=== PATIENT | female | born 1955 | race Caucasian/White ===

== ENCOUNTER → 2017-02-09 | Outpatient (CLI) | payer OTHER ==
--- NOTE | 2017-02-09 10:07 | DIAGNOSTIC IMAGING REPORT ---
DOPPLER ULTRASOUND OF THE RENAL ARTERIES CLINICAL HISTORY: Renal artery atherosclerosis. COMPARISON STUDY: No priors. TECHNIQUE: Doppler sonography of the renal arteries was performed to assess renal artery stenosis. Images are reviewed in the transverse and longitudinal planes. FINDINGS: The kidneys appear normal in size and echotexture. The right kidney measures 10.4 cm in length and the left kidney measures 10.8 cm in length. There is no hydronephrosis. On the right, intrarenal arterial resistive indices range from 0.52 to 0.66. Intrarenal arterial waveforms are normal with brisk upstrokes. The right renal arterial waveform is normal, and velocities within the right renal artery measure up to 103 cm/sec. The right renal vein is patent. On the left, intrarenal arterial resistive indices range from 0.60 to 0.64. Intrarenal arterial waveforms are normal with brisk upstrokes. The left renal arterial waveform is normal, and velocities within the left renal artery measure up to 107 cm/sec. The left renal vein is patent. The abdominal aorta is patent. Velocities within the abdominal aorta measure up to 119 cm/s. IMPRESSION: There is no sonographic evidence of renal artery stenosis. Electronically signed by: Dilan Gutierrez M.D. 02/09/2017 10:06 AM Dictated Date/Time: 02/09/2017 10:03 AM
== END | disposition home or self-care (01) ==
LOC: C.ULTR 08:55
PROVIDERS: ATTEND Internal Medicine
DX: I70.1 Atherosclerosis of renal artery (principal)

== ENCOUNTER → 2017-03-27 | Outpatient (CLI) | payer OTHER ==
--- NOTE | 2017-03-28 07:35 | MAMMOGRAPHY REPORT ---
BILATERAL DIGITAL SCREENING MAMMOGRAM TOMOSYNTHESIS WITH CAD: 03/27/2017 CLINICAL HISTORY: Routine screening. Patient has no complaints. TECHNIQUE: Breast tomosynthesis in addition to standard 2D mammography was performed. Current study was also evaluated with a Computer Aided Detection (CAD) system. COMPARISON: Comparison is made to exam dated: 12/20/2015 mammogram. BREAST COMPOSITION: There are scattered areas of fibroglandular density in both breasts. FINDINGS: There are stable asymmetries in the superior right breast on the MLO view in the medial, po sterior right breast on the CC view. Diffuse punctate microcalcifications. No suspicious mass, arch itectural distortion or cluster of microcalcifications is seen. IMPRESSION: ACR BI-RADS CATEGORY 1: NEGATIVE There is no mammographic evidence of malignancy. A 1 year screening mammogram is recommended. The pa tient will receive written notification of the results. Approximately 10% of breast cancers are not detected with mammography. A negative mammographic report should not delay biopsy if a clinically suggestive mass is present. Nidia Delgado M.D. ay/:03/28/2017 06:48:35 [place] Counselor: Nely ALVARADO(Meera)(Janette), [facility] letter sent: Normal 1/2 BI-RADS Code: ACR BI-RADS Category 1: Negative
== END | disposition home or self-care (01) ==
LOC: C.MAMM 13:18
PROVIDERS: ATTEND Internal Medicine
DX: Z12.31 Encounter for screening mammogram for malignant neoplasm of breast (principal)

== ENCOUNTER → 2017-06-15 | Outpatient (CLI) | payer OTHER ==
--- NOTE | 2017-06-15 10:24 | DIAGNOSTIC IMAGING REPORT ---
LUMBAR SPINE 5 VIEWS CLINICAL HISTORY: Left side back pain. FINDINGS: 5 views of the lumbar spine are obtained. No prior studies are available for comparison at the time of dictation. The skeletal structures are osteopenic. There is no radiographic evidence of fracture or malalignment. Vertebral body height and alignment are maintained. The transverse and spinous processes are intact. There is no evidence of spondylolysis. Mild facet arthropathy is seen in the lower lumbar region. Tiny anterior osteophytes are seen throughout. The intervertebral disc spaces are well-maintained. The visualized bony pelvis appears intact. There is a nonobstructed abdominal bowel gas pattern. Moderate constipation is observed. IMPRESSION: 1. No acute bony abnormality is seen involving the lumbosacral spine. 2. Moderate constipation. Electronically signed by: Dilan Gutierrez M.D. 06/15/2017 10:22 AM Dictated Date/Time: 06/15/2017 10:21 AM
--- NOTE | 2017-06-15 10:31 | DIAGNOSTIC IMAGING REPORT ---
THORACIC SPINE 3 VIEWS ROUTINE HISTORY: Pain. Neuropathy. M54.9 Left-sided back [id number] COMPARISON: None. FINDINGS: There is no fracture. No subluxation. Moderate degenerative disc change throughout the entire thoracic region. No evidence for compression deformity. No significant subluxation. IMPRESSION: Moderate degenerative disc change throughout the entire thoracic region. No acute process. The above report was generated using voice recognition software. It may contain grammatical, syntax or spelling errors. Electronically signed by: Freddie Zhu M.D. 06/15/2017 10:30 AM Dictated Date/Time: 06/15/2017 10:29 AM
== END | disposition home or self-care (01) ==
LOC: C.RAD1850 10:00
PROVIDERS: ATTEND Internal Medicine
DX: M54.9 Dorsalgia, unspecified (principal); K59.00 Constipation, unspecified; M51.34 Other intervertebral disc degeneration, thoracic region

== ENCOUNTER → 2017-06-29 | Outpatient (CLI) | payer OTHER ==
[2017-06-29 09:36] LABS: BASO % 0.9 %; BASO ABS # 0.03 K/uL (0-0.2); EOS % 2.4 %; EOS ABS # 0.08 K/uL (0-0.5); HEMATOCRIT 45.3 % (37-47); HEMOGLOBIN 14.6 g/dL (12.0-16.0); LYMPH % 44.9 %; LYMPH ABS # 1.51 K/uL (1.2-3.4); MEAN CELL VOLUME 98.3 fL (80-100); MEAN CORPUSCULAR HEMOGLOBIN 31.7 pg (25-34); MEAN CORPUSCULAR HGB CONC 32.2 g/dl (32-36); MEAN PLATELET VOLUME 10.8 fL (7.4-10.4); MONO % 9.8 %; MONO ABS # 0.33 K/uL (0.11-0.59); NEUT ABS # 1.41 K/uL (1.4-6.5); PLATELET COUNT 236 K/uL (130-400); RED CELL DISTRIBUTION WIDTH CV 13.4 % (11.5-14.5); RED CELL DISTRIBUTION WIDTH SD 47.9 fL (36.4-46.3); WHITE BLOOD COUNT 3.36 K/uL (4.8-10.8)
[2017-06-29 09:55] LABS: ALBUMIN 3.7 gm/dl (3.4-5.0); ALT/SGPT 28 U/L (12-78); AST/SGOT 20 U/L (15-37); BLOOD UREA NITROGEN 12 mg/dl (7-18); CALCIUM 9.1 mg/dl (8.5-10.1); CARBON DIOXIDE 29 mmol/L (21-32); CREATININE 0.76 mg/dl (0.60-1.20); GLUCOSE 84 mg/dl (70-99); POTASSIUM 3.5 mmol/L (3.5-5.1); SODIUM 138 mmol/L (136-145)
[2017-06-29 10:06] LABS: ALKALINE PHOSPHATASE 90 U/L (45-117); CHOLESTEROL 192 mg/dl (0-200); LDL CHOLESTEROL CALCULATED 99 mg/dl; TOTAL PROTEIN 7.2 gm/dl (6.4-8.2)
== END | disposition home or self-care (01) ==
LOC: C.LAB1850 07:40
PROVIDERS: ATTEND Internal Medicine
DX: Z00.00 Encounter for general adult medical examination without abnormal findings (principal); E78.5 Hyperlipidemia, unspecified; I70.1 Atherosclerosis of renal artery; R10.9 Unspecified abdominal pain

== ENCOUNTER 2020-06-23 14:12 | Observation (INO) ==
[2020-06-23] MEDS ORDERED: METOPROLOL TARTRATE 1 MG/ML VIAL IV STA ×2 (14:32→15:03)
--- NOTE | 2020-06-23 14:39 | Emergency Department Note ---
Impression & Plan Atrial flutter with rapid ventricular response, Near syncope, Palpitations, Tachycardia ED Provider Note NAME: JULIO SCHROEDER AGE: 64 SEX: F : 1955 ARRIVES VIA: Walk-In INFORMANT: [Patient] ED PROVIDER(S): [Dilan Diaz MD] CHIEF COMPLAINT: Arrhythmia HISTORY OF PRESENT ILLNESS: The patient is a 64-year-old female presents to the ER with a near syncopal event. She was at the end of her breast biopsy. She was only given local anesthetic. She began to feel faint and sweaty. No chest pain, no shortness of breath. No vomiting. She was noted to be in atrial fibrillation and was sent to the ED. The patient has not had this issue before. She states that she has had times when she felt dizzy but, she was never told that she was in A. fib. She does no t take any blood thinners. The patient was having a normal day today earlier. She went to the gym and rode an exercise bike. She has had no cough cold or congestion. Nothing new or different over the last few days. REVIEW OF SYSTEMS: See HPI for pertinent positives and negatives. A total of ten systems were reviewed and were otherwise negative. PMHx/PSHx: See Below SOCIAL HISTORY: See Below. PHYSICAL EXAM: GENERAL: Patient is in no acute distress. HEENT: No acute trauma, normocephalic atraumatic, mucous membranes moist, no nasal congestion, no scleral icterus. NECK: No stridor, no adenopathy, no meningismus, trachea is midline. LUNGS: Clear to auscultation bilaterally, no wheeze, no rhonchi, breath sounds equal. HEART: Tachycardic, irregular rhythm, no murmurs. ABDOMEN: Soft, nontender, bowel sounds positive, no hernias, no peritonitis. EXTREMITIES: No cyanosis or edema, full range of motion of all the joints without pain or difficulty, no signs for acute trauma. NEUROLOGIC: Oriented x 3, no acute motor or sensory deficits, no focal weakness. SKIN: No rash, no jaundice, no diaphoresis. DIFFERENTIAL DIAGNOSIS: Infection, dehydration, metabolic abnormality, atrial fibrillation, atrial flutter, SVT, V. tach, hypo/hyperglycemia, electrolyte disturbance, anemia, hypoxia, as well as other pathologies. EMERGENCY DEPARTMENT COURSE/PROCEDURES: ECG: Indication was near syncope. The ECG shows atrial fibrillation with a rate of 123. There is some nonspecific ST and T wave change primarily in the anterior and lateral leads. QTC is 423. There is no ST elevation, no PVCs. Continuous Cardiac Monitoring: An order was placed for continuous cardiac monitoring. The monitor shows a rate of 88 with atrial fibrillation. Critical Care Note: I have personally spent 47 minutes of critical care time in the direct management of this patient. This includes bedside care, interpretation of diagnostic studies, and testing, discussion with consultants, patient, and family members, and other required patient management activities. This 47 minutes is in excess of all separately billable procedures. MEDICAL DECISION MAKING: There is no leukocytosis or concerning anemia. There is a normal platelet count. No coagulopathy. No significant electrolyte abnormality or kidney failure. No liver enzyme elevation. The patient appeared to be in a euthyroid state. ECG shows rapid atrial fibrillation, no acute ischemia. Cardiac enzyme testing x1 is not consistent with acute cardiac injury. Chest film does not show pneumonia or CHF. Urinalysis did not show infection. Covid testing returned negative. The patient received IV saline, 500 cc. She received 15 mg of IV Lopressor in total without any significant decrease in her heart rate. She was placed on a diltiazem drip after a diltiazem bolus. This seemed to help control the heart rate into the 80s. The patient presents with rapid atrial fibrillation after her breast biopsy procedure. She has noticed palpitations over the years but has never been diagnosed with A. fib. I do think the patient requires a hospital stay. I have had a difficult time controlling her heart rate, she has remained in atrial fibrillation. I spoke to the patient at length, I talked to case management. The on-call hospitalist was consulted. Past Med/Surg History Medical History GERD (gastroesophageal reflux disease) Hyperlipidemia Surgical History History of appendectomy History of removal of ovarian cyst History of root canal procedure History of tonsillectomy and adenoidectomy Family History Mother Family history of diabetes mellitus Breast cancer Myocardial infarction Father Myocardial infarction Other No family history of adverse response to anesthesia Denies family history of Ovarian cancer Prostate cancer Colorectal cancer Social History Smoking Status: Never smoker Second Hand Exposure: No; Hx Alcohol Use: Yes Alcohol type: wine Hx Substance Use: No Preferred Language: Setswana Communication Ability: Effective Visual Impairment: No Limitations Hearing Ability: Normal 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 Beliefs That Will Affect Care: None marital status: Current Living Situation: Spouse current occupational status: employed 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 Other Information That Helps Us Care for You: No Feels Safe at Home: Yes Safety Concerns: Feels Safe At This Time Childhood Exposure to Second-Hand Smoke: No Dental Care, Regularly: Yes Physical Activity Frequency: 5-6 Times per Week Seatbelt Use: always Sunscreen Use: Yes Assistive Devices: Glasses Allergies Allergies Allergy/AdvReac Type Severity Reaction Status Date / Time No Known Allergies Allergy Verified 06/23/20 16:03 Home Meds Previous Rx's Medication Instructions Recorded pravastatin 80 mg tablet 80 mg PO HS #90 tab 06/12/19 omeprazole 20 mg tablet,delayed 20 mg PO BID #180 tab 10/30/19 release Results & Data (ED) Vital Signs Vital Signs - 24 hr 06/23/20 14:16 06/23/20 14:39 06/23/20 14:40 Temperature 36.9 C Temperature Source Temporal Artery Scan Pulse Rate 134 H 115 H 128 H Pulse Rate from SpO2 Sensor Respiratory Rate 16 16 17 Respiratory Effort / Characteristics Non-Labored Spontaneous Respiratory Depth Normal Respiratory Pattern Regular Blood Pressure 137/78 Blood Pressure Mean 97 Blood Pressure Position Sitting Pulse Oximetry 96 Oxygen Delivery Method Room Air Sepsis Recent Fever Within 48 Hours No Sepsis New/Unexplained Change in Mental Status N/A Sepsis Action Taken by Nursing No Action Required 06/23/20 14:45 06/23/20 14:50 06/23/20 14:51 Temperature Temperature Source Pulse Rate 126 H 116 H 119 H Pulse Rate from SpO2 Sensor 118 H 108 H 119 H Respiratory Rate 20 20 18 Respiratory Effort / Characteristics Respiratory Depth Respiratory Pattern Blood Pressure 152/93 H Blood Pressure Mean 112 Blood Pressure Position Pulse Oximetry 98 97 96 Oxygen Delivery Method Sepsis Recent Fever Within 48 Hours Sepsis New/Unexplained Change in Mental Status Sepsis Action Taken by Nursing 06/23/20 14:55 06/23/20 14:56 06/23/20 15:00 Temperature Temperature Source Pulse Rate 116 H 110 H 117 H Pulse Rate from SpO2 Sensor 123 H 113 H Respiratory Rate 19 14 14 Respiratory Effort / Characteristics Respiratory Depth Respiratory Pattern Blood Pressure 134/90 128/99 Blood Pressure Mean 104 108 Blood Pressure Position Pulse Oximetry 97 Oxygen Delivery Method Sepsis Recent Fever Within 48 Hours Sepsis New/Unexplained Change in Mental Status Sepsis Action Taken by Nursing 06/23/20 15:01 06/23/20 15:05 06/23/20 15:06 Temperature Temperature Source Pulse Rate 122 H 105 H 108 H Pulse Rate from SpO2 Sensor 113 H 121 H 107 H Respiratory Rate 21 15 14 Respiratory Effort / Characteristics Respiratory Depth Respiratory Pattern Blood Pressure 139/111 H Blood Pressure Mean 120 Blood Pressure Position Pulse Oximetry 95 95 Oxygen Delivery Method Sepsis Recent Fever Within 48 Hours Sepsis New/Unexplained Change in Mental Status Sepsis Action Taken by Nursing 06/23/20 15:10 06/23/20 15:11 06/23/20 15:15 Temperature Temperature Source Pulse Rate 106 H 107 H 108 H Pulse Rate from SpO2 Sensor 101 H 91 H 101 H Respiratory Rate 16 16 15 Respiratory Effort / Characteristics Respiratory Depth Respiratory Pattern Blood Pressure 135/88 137/94 Blood Pressure Mean 103 108 Blood Pressure Position Pulse Oximetry 95 96 Oxygen Delivery Method Sepsis Recent Fever Within 48 Hours Sepsis New/Unexplained Change in Mental Status Sepsis Action Taken by Nursing 06/23/20 15:16 06/23/20 15:20 06/23/20 15:25 Temperature Temperature Source Pulse Rate 106 H 105 H 106 H Pulse Rate from SpO2 Sensor 121 H 81 101 H Respiratory Rate 15 16 15 Respiratory Effort / Characteristics Respiratory Depth Respiratory Pattern Blood Pressure 128/95 Blood Pressure Mean 106 Blood Pressure Position Pulse Oximetry 94 94 Oxygen Delivery Method Sepsis Recent Fever Within 48 Hours Sepsis New/Unexplained Change in Mental Status Sepsis Action Taken by Nursing 06/23/20 15:30 06/23/20 15:35 06/23/20 15:40 Temperature Temperature Source Pulse Rate 116 H 106 H 117 H Pulse Rate from SpO2 Sensor 113 H 99 H 92 H Respiratory Rate 15 16 15 Respiratory Effort / Characteristics Respiratory Depth Respiratory Pattern Blood Pressure 123/91 114/95 133/108 H Blood Pressure Mean 101 101 116 Blood Pressure Position Pulse Oximetry 96 96 95 Oxygen Delivery Method Sepsis Recent Fever Within 48 Hours Sepsis New/Unexplained Change in Mental Status Sepsis Action Taken by Nursing 06/23/20 15:45 06/23/20 15:51 06/23/20 15:55 Temperature Temperature Source Pulse Rate 120 H 117 H 105 H Pulse Rate from SpO2 Sensor 107 H 99 H 99 H Respiratory Rate 22 16 18 Respiratory Effort / Characteristics Respiratory Depth Respiratory Pattern Blood Pressure 101/75 104/83 124/89 Blood Pressure Mean 83 90 100 Blood Pressure Position Pulse Oximetry 96 95 96 Oxygen Delivery Method Sepsis Recent Fever Within 48 Hours Sepsis New/Unexplained Change in Mental Status Sepsis Action Taken by Nursing 06/23/20 16:07 06/23/20 16:10 06/23/20 16:13 Temperature Temperature Source Pulse Rate 97 H 120 H Pulse Rate from SpO2 Sensor 100 H 114 H Respiratory Rate 18 21 Respiratory Effort / Characteristics Respiratory Depth Respiratory Pattern Blood Pressure 119/86 132/96 Blood Pressure Mean 97 108 Blood Pressure Position Pulse Oximetry 95 97 Oxygen Delivery Method Room Air Sepsis Recent Fever Within 48 Hours Sepsis New/Unexplained Change in Mental Status Sepsis Action Taken by Nursing 06/23/20 16:15 06/23/20 16:16 06/23/20 16:20 Temperature Temperature Source Pulse Rate 95 H 96 H 93 H Pulse Rate from SpO2 Sensor 95 H 85 95 H Respiratory Rate 17 22 23 Respiratory Effort / Characteristics Respiratory Depth Respiratory Pattern Blood Pressure 117/70 123/84 Blood Pressure Mean 85 97 Blood Pressure Position Pulse Oximetry 93 94 90 Oxygen Delivery Method Sepsis Recent Fever Within 48 Hours Sepsis New/Unexplained Change in Mental Status Sepsis Action Taken by Nursing 06/23/20 16:21 06/23/20 16:25 06/23/20 16:26 Temperature Temperature Source Pulse Rate 83 101 H 93 H Pulse Rate from SpO2 Sensor 83 98 H 86 Respiratory Rate 20 16 21 Respiratory Effort / Characteristics Respiratory Depth Respiratory Pattern Blood Pressure 130/76 Blood Pressure Mean 94 Blood Pressure Position Pulse Oximetry 96 95 95 Oxygen Delivery Method Sepsis Recent Fever Within 48 Hours Sepsis New/Unexplained Change in Mental Status Sepsis Action Taken by Nursing 06/23/20 16:30 06/23/20 16:31 06/23/20 16:35 Temperature Temperature Source Pulse Rate 106 H 83 88 Pulse Rate from SpO2 Sensor 95 H 86 99 H Respiratory Rate 16 15 18 Respiratory Effort / Characteristics Respiratory Depth Respiratory Pattern Blood Pressure 120/87 121/81 Blood Pressure Mean 98 94 Blood Pressure Position Pulse Oximetry 96 97 96 Oxygen Delivery Method Sepsis Recent Fever Within 48 Hours Sepsis New/Unexplained Change in Mental Status Sepsis Action Taken by Nursing 06/23/20 16:36 06/23/20 16:40 06/23/20 16:41 Temperature Temperature Source Pulse Rate 88 99 H 90 Pulse Rate from SpO2 Sensor 90 93 H 83 Respiratory Rate 16 16 14 Respiratory Effort / Characteristics Respiratory Depth Respiratory Pattern Blood Pressure 125/66 Blood Pressure Mean 85 Blood Pressure Position Pulse Oximetry 95 96 95 Oxygen Delivery Method Sepsis Recent Fever Within 48 Hours Sepsis New/Unexplained Change in Mental Status Sepsis Action Taken by Nursing 06/23/20 16:45 06/23/20 16:46 06/23/20 16:50 Temperature Temperature Source Pulse Rate 93 H 89 92 H Pulse Rate from SpO2 Sensor 78 92 H 99 H Respiratory Rate 14 14 17 Respiratory Effort / Characteristics Respiratory Depth Respiratory Pattern Blood Pressure 128/76 Blood Pressure Mean 93 Blood Pressure Position Pulse Oximetry 93 97 94 Oxygen Delivery Method Sepsis Recent Fever Within 48 Hours Sepsis New/Unexplained Change in Mental Status Sepsis Action Taken by Nursing 06/23/20 16:51 06/23/20 16:55 06/23/20 16:56 Temperature Temperature Source Pulse Rate 93 H 95 H 91 H Pulse Rate from SpO2 Sensor 86 97 H 87 Respiratory Rate 18 16 17 Respiratory Effort / Characteristics Respiratory Depth Respiratory Pattern Blood Pressure 121/100 129/88 Blood Pressure Mean 107 101 Blood Pressure Position Pulse Oximetry 94 95 95 Oxygen Delivery Method Sepsis Recent Fever Within 48 Hours Sepsis New/Unexplained Change in Mental Status Sepsis Action Taken by Nursing 06/23/20 17:00 06/23/20 17:01 06/23/20 17:05 Temperature Temperature Source Pulse Rate 99 H 94 H 91 H Pulse Rate from SpO2 Sensor 93 H 90 84 Respiratory Rate 19 16 18 Respiratory Effort / Characteristics Respiratory Depth Respiratory Pattern Blood Pressure 114/86 128/85 Blood Pressure Mean 95 99 Blood Pressure Position Pulse Oximetry 97 96 95 Oxygen Delivery Method Sepsis Recent Fever Within 48 Hours Sepsis New/Unexplained Change in Mental Status Sepsis Action Taken by Nursing 06/23/20 17:06 06/23/20 17:10 06/23/20 17:11 Temperature Temperature Source Pulse Rate 87 93 H 104 H Pulse Rate from SpO2 Sensor 87 85 96 H Respiratory Rate 19 16 20 Respiratory Effort / Characteristics Respiratory Depth Respiratory Pattern Blood Pressure 105/84 Blood Pressure Mean 91 Blood Pressure Position Pulse Oximetry 95 96 96 Oxygen Delivery Method Sepsis Recent Fever Within 48 Hours Sepsis New/Unexplained Change in Mental Status Sepsis Action Taken by Nursing 06/23/20 17:15 06/23/20 17:20 06/23/20 17:25 Temperature Temperature Source Pulse Rate 109 H 105 H 100 H Pulse Rate from SpO2 Sensor 112 H 102 H 102 H Respiratory Rate 21 17 12 Respiratory Effort / Characteristics Respiratory Depth Respiratory Pattern Blood Pressure 105/81 129/81 127/78 Blood Pressure Mean 89 97 94 Blood Pressure Position Pulse Oximetry 93 97 96 Oxygen Delivery Method Sepsis Recent Fever Within 48 Hours Sepsis New/Unexplained Change in Mental Status Sepsis Action Taken by Nursing 06/23/20 17:26 06/23/20 17:30 06/23/20 17:31 Temperature Temperature Source Pulse Rate 103 H 100 H 99 H Pulse Rate from SpO2 Sensor 97 H 109 H 90 Respiratory Rate 20 15 19 Respiratory Effort / Characteristics Respiratory Depth Respiratory Pattern Blood Pressure 129/99 Blood Pressure Mean 109 Blood Pressure Position Pulse Oximetry 94 94 96 Oxygen Delivery Method Sepsis Recent Fever Within 48 Hours Sepsis New/Unexplained Change in Mental Status Sepsis Action Taken by Nursing 06/23/20 17:35 06/23/20 17:36 06/23/20 17:40 Temperature Temperature Source Pulse Rate 108 H 96 H 107 H Pulse Rate from SpO2 Sensor 105 H 94 H 97 H Respiratory Rate 21 23 20 Respiratory Effort / Characteristics Respiratory Depth Respiratory Pattern Blood Pressure 129/91 132/94 Blood Pressure Mean 103 106 Blood Pressure Position Pulse Oximetry 95 96 97 Oxygen Delivery Method Sepsis Recent Fever Within 48 Hours Sepsis New/Unexplained Change in Mental Status Sepsis Action Taken by Nursing 06/23/20 17:41 06/23/20 17:45 06/23/20 17:46 Temperature Temperature Source Pulse Rate 108 H 94 H 94 H Pulse Rate from SpO2 Sensor 95 H 101 H 85 Respiratory Rate 20 22 21 Respiratory Effort / Characteristics Respiratory Depth Respiratory Pattern Blood Pressure 131/82 Blood Pressure Mean 98 Blood Pressure Position Pulse Oximetry 95 97 93 Oxygen Delivery Method Sepsis Recent Fever Within 48 Hours Sepsis New/Unexplained Change in Mental Status Sepsis Action Taken by Nursing 06/23/20 17:50 06/23/20 17:51 Temperature Temperature Source Pulse Rate 90 80 Pulse Rate from SpO2 Sensor 91 H 82 Respiratory Rate 15 20 Respiratory Effort / Characteristics Respiratory Depth Respiratory Pattern Blood Pressure 131/87 Blood Pressure Mean 101 Blood Pressure Position Pulse Oximetry 97 91 Oxygen Delivery Method Sepsis Recent Fever Within 48 Hours Sepsis New/Unexplained Change in Mental Status Sepsis Action Taken by Group Home Medications Current Medication List: was personally reviewed by me Laboratory Data Attestation: I reviewed the patient's lab results. Result diagrams: 06/23/20 14:45 06/23/20 16:03 Lab Results 06/23/20 06/23/20 06/23/20 Range/Units 14:45 14:45 14:45 WBC 6.08 (4.8-10.8) K/uL RBC 4.49 (4.2-5.4) M/uL Hgb 14.6 (12.0-16.0) g/dL Hct 43.8 (37-47) % MCV 97.6 (80-100) fL MCH 32.5 (25-34) pg MCHC 33.3 (32-36) g/dL RDW Std Deviation 48.7 H (36.4-46.3) fL RDW Coeff of Helen 13.7 (11.5-14.5) % Plt Count 227 (130-400) K/uL MPV 10.6 H (7.4-10.4) fL Immature Gran % (Auto) 0.2 % Neut % (Auto) 68.8 % Lymph % (Auto) 23.7 % Murray % (Auto) 6.6 % Eos % (Auto) 0.5 % Baso % (Auto) 0.2 % Neut # (Auto) 4.19 (1.4-6.5) K/uL Lymph # (Auto) 1.44 (1.2-3.4) K/uL Murray # (Auto) 0.40 (0.11-0.59) K/uL Eos # (Auto) 0.03 (0-0.5) K/uL Baso # (Auto) 0.01 (0-0.2) K/uL Immature Gran # (Auto) 0.01 (0.00-0.02) K/uL PT Cancelled INR Cancelled APTT Cancelled PTT Ratio Cancelled Sodium 137 (136-145) mmol/L Potassium (3.5-5.1) mmol/L Chloride 105 (98-107) mmol/L Carbon Dioxide 25 (21-32) mmol/L Anion Gap 7.0 (3-11) BUN 13 (7-18) mg/dl Creatinine 1.00 (0.6-1.2) mg/dl Est Cr Clr Drug Dosing 57.8 ml/min Est GFR ( Amer) 69.0 Est GFR (Non-Af Amer) 59.5 BUN/Creatinine Ratio 13.2 (10-20) Glucose 119 H (70-99) mg/dl Calcium 9.8 (8.5-10.1) mg/dl Magnesium (1.8-2.4) mg/dl Total Bilirubin 0.3 (0.2-1) mg/dl AST (15-37) U/L ALT 28 (12-78) U/L Alkaline Phosphatase 101 (45-117) U/L Troponin I < 0.015 (0-0.045) ng/ml Total Protein 7.7 (6.4-8.2) gm/dl Albumin 4.1 (3.4-5.0) gm/dl Globulin 3.6 (2.5-4.0) gm/dl Albumin/Globulin Ratio 1.1 (0.9-2) TSH 3.410 (0.300-4.500) uIu/ml Urine Color Urine Appearance (Clear) Urine pH (4.5-7.5) Ur Specific [place] (1.000-1.030) Urine Protein (Negative) Urine Glucose (UA) (Negative) Urine Ketones (Negative) Urine Blood (Negative) Urine Nitrite (Negative) Urine Bilirubin (Negative) Urine Urobilinogen (Negative) Ur Leukocyte Esterase (Negative) Urine WBC (Auto) (0-5) /hpf Urine RBC (Auto) (0-4) /hpf U Hyaline Cast (Auto) (0-5) /lpf U Epithel Cells (Auto) (0-5) /lpf Urine Bacteria (Auto) (Negative) COVID-19 Eval Order SARS-CoV-2, RNA, NAAT (NEGATIVE) 06/23/20 06/23/20 06/23/20 Range/Units 16:03 16:03 16:10 WBC (4.8-10.8) K/uL RBC (4.2-5.4) M/uL Hgb (12.0-16.0) g/dL Hct (37-47) % MCV (80-100) fL MCH (25-34) pg MCHC (32-36) g/dL RDW Std Deviation (36.4-46.3) fL RDW Coeff of Helen (11.5-14.5) % Plt Count (130-400) K/uL MPV (7.4-10.4) fL Immature Gran % (Auto) % Neut % (Auto) % Lymph % (Auto) % Murray % (Auto) % Eos % (Auto) % Baso % (Auto) % Neut # (Auto) (1.4-6.5) K/uL Lymph # (Auto) (1.2-3.4) K/uL Murray # (Auto) (0.11-0.59) K/uL Eos # (Auto) (0-0.5) K/uL Baso # (Auto) (0-0.2) K/uL Immature Gran # (Auto) (0.00-0.02) K/uL PT 9.8 INR 1.0 APTT 20.7 L PTT Ratio 0.8 Sodium (136-145) mmol/L Potassium 3.5 (3.5-5.1) mmol/L Chloride (98-107) mmol/L Carbon Dioxide (21-32) mmol/L Anion Gap (3-11) BUN (7-18) mg/dl Creatinine (0.6-1.2) mg/dl Est Cr Clr Drug Dosing ml/min Est GFR ( Amer) Est GFR (Non-Af Amer) BUN/Creatinine Ratio (10-20) Glucose (70-99) mg/dl Calcium (8.5-10.1) mg/dl Magnesium 2.4 (1.8-2.4) mg/dl Total Bilirubin (0.2-1) mg/dl AST 18 (15-37) U/L ALT (12-78) U/L Alkaline Phosphatase (45-117) U/L Troponin I (0-0.045) ng/ml Total Protein (6.4-8.2) gm/dl Albumin (3.4-5.0) gm/dl Globulin (2.5-4.0) gm/dl Albumin/Globulin Ratio (0.9-2) TSH (0.300-4.500) uIu/ml Urine Color Yellow Urine Appearance Cloudy A (Clear) Urine pH 8.0 H (4.5-7.5) Ur Specific [place] 1.007 (1.000-1.030) Urine Protein Negative (Negative) Urine Glucose (UA) Negative (Negative) Urine Ketones Negative (Negative) Urine Blood Negative (Negative) Urine Nitrite Negative (Negative) Urine Bilirubin Negative (Negative) Urine Urobilinogen Negative (Negative) Ur Leukocyte Esterase Negative (Negative) Urine WBC (Auto) 1-5 (0-5) /hpf Urine RBC (Auto) 0-4 (0-4) /hpf U Hyaline Cast (Auto) 0 (0-5) /lpf U Epithel Cells (Auto) 0-5 (0-5) /lpf Urine Bacteria (Auto) Negative (Negative) COVID-19 Eval Order SARS-CoV-2, RNA, NAAT (NEGATIVE) 06/23/20 06/23/20 Range/Units 16:49 16:49 WBC (4.8-10.8) K/uL RBC (4.2-5.4) M/uL Hgb (12.0-16.0) g/dL Hct (37-47) % MCV (80-100) fL MCH (25-34) pg MCHC (32-36) g/dL RDW Std Deviation (36.4-46.3) fL RDW Coeff of Helen (11.5-14.5) % Plt Count (130-400) K/uL MPV (7.4-10.4) fL Immature Gran % (Auto) % Neut % (Auto) % Lymph % (Auto) % Murray % (Auto) % Eos % (Auto) % Baso % (Auto) % Neut # (Auto) (1.4-6.5) K/uL Lymph # (Auto) (1.2-3.4) K/uL Murray # (Auto) (0.11-0.59) K/uL Eos # (Auto) (0-0.5) K/uL Baso # (Auto) (0-0.2) K/uL Immature Gran # (Auto) (0.00-0.02) K/uL PT INR APTT PTT Ratio Sodium (136-145) mmol/L Potassium (3.5-5.1) mmol/L Chloride (98-107) mmol/L Carbon Dioxide (21-32) mmol/L Anion Gap (3-11) BUN (7-18) mg/dl Creatinine (0.6-1.2) mg/dl Est Cr Clr Drug Dosing ml/min Est GFR ( Amer) Est GFR (Non-Af Amer) BUN/Creatinine Ratio (10-20) Glucose (70-99) mg/dl Calcium (8.5-10.1) mg/dl Magnesium (1.8-2.4) mg/dl Total Bilirubin (0.2-1) mg/dl AST (15-37) U/L ALT (12-78) U/L Alkaline Phosphatase (45-117) U/L Troponin I (0-0.045) ng/ml Total Protein (6.4-8.2) gm/dl Albumin (3.4-5.0) gm/dl Globulin (2.5-4.0) gm/dl Albumin/Globulin Ratio (0.9-2) TSH (0.300-4.500) uIu/ml Urine Color Urine Appearance (Clear) Urine pH (4.5-7.5) Ur Specific [place] (1.000-1.030) Urine Protein (Negative) Urine Glucose (UA) (Negative) Urine Ketones (Negative) Urine Blood (Negative) Urine Nitrite (Negative) Urine Bilirubin (Negative) Urine Urobilinogen (Negative) Ur Leukocyte Esterase (Negative) Urine WBC (Auto) (0-5) /hpf Urine RBC (Auto) (0-4) /hpf U Hyaline Cast (Auto) (0-5) /lpf U Epithel Cells (Auto) (0-5) /lpf Urine Bacteria (Auto) (Negative) COVID-19 Eval Order Covid19 [facility] SARS-CoV-2, RNA, NAAT NEGATIVE (NEGATIVE) Administered Medications Diltiazem HCl 125 mg/ Dextrose 125 mls @ 0 mls/hr IV .Q0M [facility]; Protocol Stop: 07/23/20 15:29 Last Titration: 06/23/20 19:07 Dose: 0 mg/hr, 0 mls/hr Documented by: [id number] Cosigned by: [id number] Titration: 06/23/20 18:52 Dose: 5 mg/hr, 5 mls/hr Documented by: [id number] Cosigned by: [id number] Titration: 06/23/20 17:03 Dose: 10 mg/hr, 10 mls/hr Documented by: [id number] Cosigned by: [id number] Admin: 06/23/20 16:07 Dose: 5 mg/hr, 5 mls/hr Documented by: [id number] Cosigned by: [id number] Discontinued Medications Diltiazem HCl (Diltiazem Hcl 5 Mg/Ml 5 Ml Vial) 5 mg IV NOW STA Stop: 06/23/20 15:31 Last Admin: 06/23/20 16:06 Dose: 5 mg Documented by: [id number] Cosigned by: [id number] Sodium Chloride (Nss) 500 mls @ 999 mls/hr IV .Q31M [facility] Stop: 06/23/20 15:15 Last Infusion: 06/23/20 15:21 Dose: 0 mls/hr Documented by: [id number] Admin: 06/23/20 14:45 Dose: 999 mls/hr Documented by: [id number] Metoprolol Tartrate (Metoprolol Tartrate 1 Mg/Ml Vial) 5 mg IV NOW STA Stop: 06/23/20 14:33 Last Admin: 06/23/20 14:45 Dose: 5 mg Documented by: [id number] Metoprolol Tartrate (Metoprolol Tartrate 1 Mg/Ml Vial) 10 mg IV NOW STA Stop: 06/23/20 15:04 Last Admin: 06/23/20 15:05 Dose: 10 mg Documented by: [id number] Miscellaneous (Stat Iv Infusion Titration Per Protocol) 1 ea N/A NOW STA Stop: 06/23/20 15:31 Last Admin: 06/23/20 16:28 Dose: 1 ea Documented by: [id number] Imaging Data Radiologist's Impression: XR chest 1V portable CLINICAL HISTORY: Weakness. COMPARISON STUDY: No previous studies for comparison. FINDINGS: Lung volumes are normal. Minimal opacity along left heart border is no jorge. There is no pneumothorax or pleural effusion. Cardiac size is normal. Mediastinal contours are normal. There is no evidence for pulmonary edema. IMPRESSION: 1. No acute cardiopulmonary findings. 2. Minimal opacity along the left heart border which favors atelectasis or epicardial fat pad. Discharge Plan Visit Data Chief Complaint: Arrhythmia/Palpitations Stated Complaint: POST PROCEDURE - AFIB SENT BY ED Provider: Dilan Diaz Discharge Problem: Atrial flutter with rapid ventricular response, Near syncope, Palpitations, Tachycardia Patient Disposition: Admitted As Inpatient Condition: Fair Discharge Instructions Interventions: ED Discharge Assessment Last Done: 06/23/20 19:28
[2020-06-23] MEDS ORDERED: SODIUM CHLORIDE 0.9% 500 ML IV SCH (14:45)
[2020-06-23 15:07] LABS: Basophils # (auto) 0.01 K/uL (0-0.2); Basophils % (auto) 0.2 %; Eosinophils # (auto) 0.03 K/uL (0-0.5); Eosinophils % (auto) 0.5 %; Hematocrit (blood only) 43.8 % (37-47); Hemoglobin 14.6 g/dL (12.0-16.0); Immature Granulocytes # (auto) 0.01 K/uL (0.00-0.02); Immature Granulocytes % (auto) 0.2 %; Lymphocytes # (auto) 1.44 K/uL (1.2-3.4); Lymphocytes % (auto) 23.7 %; Mean Corpuscular Hemoglobin 32.5 pg (25-34); Mean Corpuscular Hgb Conc 33.3 g/dL (32-36); Mean Corpuscular Volume 97.6 fL (80-100); Mean Platelet Volume 10.6 fL (7.4-10.4); Monocytes % (auto) 6.6 %; Neutrophils # (auto) 4.19 K/uL (1.4-6.5); Neutrophils % (auto) 68.8 %; Platelet Count 227 K/uL (130-400); RDW Coefficient of Variation 13.7 % (11.5-14.5); RDW Standard Deviation 48.7 fL (36.4-46.3); Red Blood Count 4.49 M/uL (4.2-5.4); White Blood Count 6.08 K/uL (4.8-10.8)
--- NOTE | 2020-06-23 15:08 | XRay Report ---
XR chest 1V portable CLINICAL HISTORY: Weakness. COMPARISON STUDY: No previous studies for comparison. FINDINGS: Lung volumes are normal. Minimal opacity along left heart border is noted. There is no pneu mothorax or pleural effusion. Cardiac size is normal. Mediastinal contours are normal. There is no ev idence for pulmonary edema. IMPRESSION: 1. No acute cardiopulmonary findings. 2. Minimal opacity along the left heart border which favors atelectasis or epicardial fat pad. ACT 112: Negative or not required by law. Electronically signed by: Hector Proctor M.D. 06/23/2020 3:07 PM
[2020-06-23] MEDS ORDERED: dilTIAZem HCL 125 MG in DEXTROSE 5% 100 ML IV SCH (15:30)
[2020-06-23] MEDS ORDERED: STAT IV Infusion **Titration per Protocol STA (15:30)
[2020-06-23] MEDS ORDERED: dilTIAZem HCl 5 MG/ML 5 ML VIAL IV STA (15:30)
--- NOTE | 2020-06-23 15:36 | Electrocardiogram Report ---
Test Reason : Blood Pressure : / mmHG Vent. Rate : 123 BPM Atrial Rate : 113 BPM P-R Int : 000 ms QRS Dur : 088 ms QT Int : 296 ms P-R-T Axes : 000 057 012 degrees QTc Int : 423 ms Atrial fibrillation with rapid ventricular response Nonspecific ST and T wave abnormality Abnormal ECG No previous ECGs available Confirmed by hTomas Uribe ([id number]) on 06/23/2020 3:36:18 PM Referred By: Confirmed By:Thomas Uribe
[2020-06-23 15:45] LABS: Alanine Aminotransferase 28 U/L (12-78); Albumin Globulin Ratio 1.1 (0.9-2); Albumin Level 4.1 gm/dl (3.4-5.0); Alkaline Phosphatase 101 U/L (45-117); BUN Creatinine Ratio 13.2 (10-20); Bilirubin,Total 0.3 mg/dl (0.2-1); Blood Urea Nitrogen 13 mg/dl (7-18); Calcium 9.8 mg/dl (8.5-10.1); Carbon Dioxide 25 mmol/L (21-32); Chloride 105 mmol/L (98-107); Creatinine Clr Calc Pharmacy 57.8 ml/min; Est GFR (Non-African American) 59.5; Globulin 3.6 gm/dl (2.5-4.0); Glucose 119 mg/dl (70-99); Sodium 137 mmol/L (136-145); Total Protein 7.7 gm/dl (6.4-8.2); Troponin I < 0.015 ng/ml (0-0.045)
[2020-06-23 16:27] LABS: Appearance Urine Cloudy (Clear); Bacteria Urine Automated Negative (Negative); Bilirubin Urine Negative (Negative); Blood Urine Negative (Negative); Cast Urine Automated 0 /lpf (0-5); Color Urine Yellow; Epithelial Cell Urine Auto 0-5 /lpf (0-5); Glucose Urine UA Negative (Negative); Ketones Urine Negative (Negative); Leukocyte Esterase Urine Negative (Negative); Nitrite Urine Negative (Negative); Protein Urine Negative (Negative); RBC Urine Automated 0-4 /hpf (0-4); Specific Gravity Urine 1.007 (1.000-1.030); Urobilinogen Urine Negative (Negative)
[2020-06-23 16:30] LABS: Prothrombin Time 9.8 Seconds (9.0-12.0)
[2020-06-23 16:34] LABS: Potassium 3.5 mmol/L (3.5-5.1)
[2020-06-23 16:41] LABS: Magnesium 2.4 mg/dl (1.8-2.4)
[2020-06-23 17:09] LABS: Partial Thromboplastin Ratio 0.8; Partial Thromboplastin Time 20.7 Seconds (21.0-31.0)
--- NOTE | 2020-06-23 17:26 | History & Physical Report ---
Date of Service June 23, 2020 Assessment & Plan (1) New onset atrial fibrillation: TSH WNL. TTE. Anticoagulation with Eliquis to start in the morning due to biopsy taken today. Continue diltiazem drip, wean as able and start metoprolol 25 mg p.o. every 6 hourly with hold parameters (2) Hyperlipidemia: Continue pravastatin 80 mg at bedtime (3) GERD (gastroesophageal reflux disease): Switch omeprazole to pantoprazole as per hospital formulary (4) Rotator cuff syndrome of left shoulder: Follow-up with orthopedic/sports medicine as an outpatient. Admission and Anticipated Discharge Date Admission Date: June 23, 2020 History of Present Illness Chief Complaint: Presyncope Primary Care Provider: Jaleesa Proctor MD Jocy Sweeney is a 64-year-old female who presents to the ER with atrial fibrillation after her breast biopsy earlier today. She reports feeling dizzy and lightheaded with mild shortness of breath after her breast biopsy in the recovery area. She was noted to have an irregular heart rate and was sent to the ER for further evaluation. She denies any history of atrial fibrillation or cardiac disease. She drinks alcohol 2-3 beers per week. No alcohol in last few days. No known thyroid disease. In the ER she was noted to be in atrial fibrillation with rapid ventricular rate. She received a total of 15 mg IV metoprolol without significant effect, therefore also given diltiazem 5 mg IV and started on a diltiazem IV drip. She was referred to medicine for admission and ongoing management of atrial fib rillation with rapid ventricular rate. Allergies Allergy/AdvReac Type Severity Reaction Status Date / Time No Known Allergies Allergy Verified 06/23/20 16:03 Home Medications Medication Instructions Recorded Confirmed Type pravastatin 80 mg tablet 80 mg PO HS #90 tab 06/12/19 06/23/20 Rx omeprazole 20 mg tablet,delayed 20 mg PO BID #180 tab 10/30/19 06/23/20 Rx release Past Med/Surg History Medical History GERD (gastroesophageal reflux disease) Hyperlipidemia Surgical History History of appendectomy History of removal of ovarian cyst History of root canal procedure History of tonsillectomy and adenoidectomy Family History Mother Family history of diabetes mellitus Breast cancer Myocardial infarction Father Myocardial infarction Other No family history of adverse response to anesthesia Denies family history of Ovarian cancer Prostate cancer Colorectal cancer Social History Smoking Status: Never smoker Second Hand Exposure: No; Hx Alcohol Use: Yes Alcohol type: wine Hx Substance Use: No Preferred Language: Cambodian Communication Ability: Effective Visual Impairment: No Limitations Hearing Ability: Normal Drawing Tender Required: No Beliefs That Will Affect Care: None marital status: Current Living Situation: Spouse current occupational status: employed 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 Other Information That Helps Us Care for You: No Feels Safe at Home: Yes Safety Concerns: Feels Safe At This Time Childhood Exposure to Second-Hand Smoke: No Dental Care, Regularly: Yes Physical Activity Frequency: 5-6 Times per Week Seatbelt Use: always Sunscreen Use: Yes Assistive Devices: Glasses Review of Systems Review of Systems: All systems reviewed & are unremarkable except as noted in HPI & below Physical Exam Constitutional: WD/WN, vitals as above Eyes: + anicteric sclerae; pupils not irregular ENMT: external ear and nose normal, oropharynx normal Neck: trachea midline, no thyromegaly Respiratory: normal respiratory effort, lungs clear to auscultation Cardiovascular: Rate/Rhythm: + tachycardic and + irregularly irregular Heart Sounds: no murmur Extremities: normal capillary refill; no calf tenderness and no pedal edema Gastrointestinal (Abdomen): normal bowel sounds, soft, nontender, no hepatosplenomegaly Musculoskeletal: no cyanosis or clubbing, extremities motor strength 5/5 Skin: no rashes, warm and dry Neurologic: moves all extremities and awake; not confused Psychiatric: A+Ox3, euthymic affect Results & Data Results & Data ([facility]) Vital Signs (Past 12 Hours) Vital Signs Temp Pulse Resp BP Pulse Ox 06/23/20 17:01 94 H 16 96 06/23/20 17:00 99 H 19 114/86 97 06/23/20 16:56 91 H 17 95 06/23/20 16:55 95 H 16 129/88 95 06/23/20 16:51 93 H 18 121/100 94 06/23/20 16:50 92 H 17 94 06/23/20 16:46 89 14 97 06/23/20 16:45 93 H 14 128/76 93 06/23/20 16:41 90 14 95 06/23/20 16:40 99 H 16 125/66 96 06/23/20 16:36 88 16 95 06/23/20 16:35 88 18 121/81 96 06/23/20 16:31 83 15 97 06/23/20 16:30 106 H 16 120/87 96 06/23/20 16:26 93 H 21 95 06/23/20 16:25 101 H 16 130/76 95 06/23/20 16:21 83 20 96 06/23/20 16:20 93 H 23 123/84 90 06/23/20 16:16 96 H 22 94 06/23/20 16:15 95 H 17 117/70 93 06/23/20 16:10 120 H 21 132/96 97 06/23/20 16:07 97 H 18 119/86 95 06/23/20 15:55 105 H 18 124/89 96 06/23/20 15:51 117 H 16 104/83 95 06/23/20 15:45 120 H 22 101/75 96 06/23/20 15:40 117 H 15 133/108 H 95 06/23/20 15:35 106 H 16 114/95 96 06/23/20 15:30 116 H 15 123/91 96 06/23/20 15:25 106 H 15 128/95 94 06/23/20 15:20 105 H 16 06/23/20 15:16 106 H 15 94 06/23/20 15:15 108 H 15 137/94 96 06/23/20 15:11 107 H 16 06/23/20 15:10 106 H 16 135/88 95 06/23/20 15:06 108 H 14 95 06/23/20 15:05 105 H 15 139/111 H 06/23/20 15:01 122 H 21 95 06/23/20 15:00 117 H 14 128/99 06/23/20 14:56 110 H 14 06/23/20 14:55 116 H 19 134/90 97 06/23/20 14:51 119 H 18 96 06/23/20 14:50 116 H 20 152/93 H 97 06/23/20 14:45 126 H 20 98 06/23/20 14:40 128 H 17 06/23/20 14:39 115 H 16 06/23/20 14:16 36.9 C 134 H 16 137/78 96 Diagnostic Findings XR chest 1V portable IMPRESSION: 1. No acute cardiopulmonary findings. 2. Minimal opacity along the left heart border which favors atelectasis or epicardial fat pad. Medications Administered ER medications given: Metoprolol 5 mg IV Metoprolol 10 mg IV Diltiazem 5 mg IV NSS 500 mL bolus Diltiazem IV drip 5mg/hr ECG Indication: tachycardia Rate (beats per minute): 123 Rhythm: atrial fibrillation Findings: no acute ischemic change Comparison ECG Date: no prior available Code Status & VTE Plan Code Status Full VTE Prophylaxis Plan VTE Prophylaxis will be ordered: Yes PG Care Time/CCT Total # of Minutes Spent Total Time Spent with Patient: Total time spent is greater than 50% in coordination of care (as documented) at patient's floor/unit and/or counseling patient: Coding Level of Care Code 96447 Initial Inpt Care Lvl 2 Diagnoses New onset atrial fibrillation I48.91 Hyperlipidemia E78.5 GERD (gastroesophageal reflux disease) K21.9 Rotator cuff syndrome of left shoulder M75.102
[2020-06-23] MEDS ORDERED: ACETAMINOPHEN 325 MG TAB PO PRN (20:05)
[2020-06-23] MEDS ORDERED: ALUMINUM/MAGNESIUM SUSP 30 ML UDC PO PRN (20:05)
[2020-06-23] MEDS ORDERED: PRAVASTATIN SOD 40 MG TAB PO SCH (21:00)
[2020-06-23] MEDS: METOPROLOL TARTRATE 25 MG TAB PO SCH (21:25)
[2020-06-23] MEDS: PANTOprazole 40 MG TAB PO SCH (21:26)
[2020-06-24] MEDS: METOPROLOL TARTRATE 25 MG TAB PO SCH ×3 (06:02→19:09)
[2020-06-24 06:27] LABS: BUN Creatinine Ratio 14.7 (10-20); Blood Urea Nitrogen 12 mg/dl (7-18); Calcium 8.9 mg/dl (8.5-10.1); Carbon Dioxide 25 mmol/L (21-32); Chloride 110 mmol/L (98-107); Creatinine Clr Calc Pharmacy 70.2 ml/min; Est GFR (African American) 91.7; Est GFR (Non-African American) 79.1; Glucose 92 mg/dl (70-99); Potassium 3.7 mmol/L (3.5-5.1); Sodium 140 mmol/L (136-145)
[2020-06-24 06:31] LABS: Troponin I < 0.015 ng/ml (0-0.045)
[2020-06-24] MEDS ORDERED: APIXABAN 2.5 MG TAB PO SCH (09:00)
[2020-06-24] MEDS: PANTOprazole 40 MG TAB PO SCH (09:50)
--- NOTE | 2020-06-26 07:19 | Discharge Summary ---
Date of Service June 24, 2020 Admission HPI Per Admitting Provider Jocy Sweeney is a 64-year-old female who presents to the ER with atrial fibrillation after her breast biopsy earlier today. She reports feeling dizzy and lightheaded with mild shortness of breath after her breast biopsy in the recovery area. She was noted to have an irregular heart rate and was sent to the ER for further evaluation. She denies any history of atrial fibrillation or cardiac disease. She drinks alcohol 2-3 beers per week. No alcohol in last few days. No known thyroid disease. In the ER she was noted to be in atrial fibrillation with rapid ventricular rate. She received a total of 15 mg IV metoprolol without significant effect, therefore also given diltiazem 5 mg IV and started on a diltiazem IV drip. She was referred to medicine for admission and ongoing management of atrial fibrillation with rapid ventricular rate. Principal Diagnosis New onset atrial fibrillation Discharge Exam Constitutional WD/WN, vitals as above Eyes EOM intact bilaterally; no conjunctival abnormality ENMT external ear and nose normal, oropharynx normal Neck trachea midline, no thyromegaly normal visual inspection Respiratory normal respiratory effort, lungs clear to auscultation no respiratory distress Cardiovascular RRR, no murmur, no edema Gastrointestinal (Abdomen) Inspection/Auscultation: abdomen normal to inspection; abdomen not distended Musculoskeletal no cyanosis or clubbing, extremities motor strength 5/5 Skin no rashes, warm and dry Neurologic moves all extremities and awake Psychiatric Orientation: alert, oriented to person and cooperative Discharge Data Allergies Allergy/AdvReac Type Severity Reaction Status Date / Time No Known Allergies Allergy Verified 06/23/20 16:03 Consultations 06/23/20 16:33 ED Decision to Admit Stat Hospital Course (1) New onset atrial fibrillation: TSH WNL. No major alcohol consumption. TTE on 06/24 showed normal EF with mild aortic insufficiency. 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 Will need to figure out why it isn't loading up into [employer].) - She returned to normal sinus on her own at approx. 6pm the day of admission (06/23). - Her CHADs-Vasc is 1 (only for being female), so anticoagulation is a risk:benefit. Only a 0.6% risk of CVA in 1 year. The patient and I discussed this, and she opted to not pursue anticoagulation unless she were to have fur ther episodes of atrial fibrillation. - Discharged on Toprol XL 50 mg PO daily to help reduce HR if she goes into afib again. - Follow up with Dr. Barrera for any further testing needs and afib management. (2) Hyperlipidemia: - Continued pravastatin 80 mg at bedtime (3) GERD (gastroesophageal reflux disease): - Switch omeprazole to pantoprazole as per hospital formulary (4) Rotator cuff syndrome of left shoulder: Follow-up with orthopedic/sports medicine as an outpatient. Total Time Total Time Spent Total Time Spent (In Minutes): 35 Discharge Plan Discharge Items Patient Disposition: Home - Self-Care Reason For Visit: NEW ONSET ATRIAL FIBRILLATION Discharge Diagnosis: New onset atrial fibrillation Condition on Discharge: Good Activity: Resume your previous activity Non-emergency contact: Primary Care Provider and Credit Officer Call non-emergency contact if: your symptoms worsen Follow-up/Referrals: Jaleesa Proctor MD [Primary Care Provider] - Reid Barrera MD [Physician] - (Please see Dr. Barrera in the next month for an atrial fibrillation follow-up.) Diet: Heart Healthy Addtl Attending Provider Instructions: Ms. Sweeney, Jaren were admitted to the hospital after an episode of atrial fibrillation. As we discussed, this is an electrical rhythm of the heart that causes it to beat irregularly and often too fast. Fortunately, your heart went back into a "normal" sinus rhythm on its own yesterday. We got an ultrasound of your heart (echocardiogram) which showed a normal squeeze of the heart. You have a bit of backward flow in one valve (the aorta), but I do not think this is affecting you at all. This is great! This means that you don't have any anatomic reason for the atrial fibrillation. That does mean, however, that you may go into the atrial fibrillation again. In fact, most people tend to have more episodes of atrial fibrillation as they get older. We are starting a medication called metoprolol which helps reduce stress levels on the heart. If you happen to go into atrial fibrillation again, it will hopefully help keep your heart rate controlled. Because your annual stroke risk is low (~0.05% per year) even if you are always in atrial fibrillation (which you no longer are), we decided to hold off on anticoagulation. If you don't go back into atrial fibrillation, the blood thinner would not provide benefit anyhow. If the atrial fibrillation comes back, this may be something to consider in the future. Please follow up with Dr. Proctor in the next week just to check in on how you are doing. Please see Dr. Barrera in the next month or so. He can touch base with you on any needed tests or follow-up. Pending Studies at Discharge: No Stand-Alone Forms: My [facility], Smoking Cessation Medications and DC Order Prescriptions: New metoprolol succinate 50 mg tablet extended release 24 hr 50 mg PO DAILY Qty: 30 RF: 0 Continued pravastatin 80 mg tablet 80 mg PO HS Qty: 90 RF: 3 omeprazole 20 mg tablet,delayed release (DR/EC) 20 mg PO BID Qty: 180 RF: 3 Discharge Orders: Discharge Order (Routine); Ordered 06/24/20 Ordered By: Rico Lorenzo Admission Data Admit Date/Time: 06/23/20 17:52 Attending Provider: Rico Lorenzo Admit Provider: Shyam Ragsdale Primary Care Provider: Jaleesa Proctor Other Providers: Rico Lorenzo Other Interventions: Discharge Summary Assessment (RN) Last Done: 06/24/20 17:50 Coding Level of Care Code D/C Day Management >30 mins Diagnoses New onset atrial fibrillation I48.91 Hyperlipidemia E78.5 GERD (gastroesophageal reflux disease) K21.9 Rotator cuff syndrome of left shoulder M75.102
== END 2020-06-24 19:09 | disposition home or self-care (01) ==
LOC: ED 14:12 → INTOOBSV 17:52 → 2S 17:52 → SUATTDRO 17:52 → 2S 19:28